=== PATIENT | male | born 1950 | race Caucasian/White ===

== ENCOUNTER 2017-01-16 06:04 | Day surgery (SDC) | payer OTHER ==
[2017-01-15 10:47] VITALS: BMI 25.1
[2017-01-16] MEDS ORDERED: methylPREDNISolone ACET (DEPO) 40 MG/1 ML VIAL ONE (07:07)
[2017-01-16] MEDS ORDERED: THROMBIN (BOVINE) 5,000 UNIT VIAL TP ONE ×2 (07:07→09:14)
[2017-01-16] MEDS ORDERED: GUM MASTIC/STORAX/MSAL/ALCOHOL 1 DRP DROPSBTL MC ONE (07:07)
[2017-01-16] MEDS ORDERED: BUPIVACAINE HCL/PF 2.5 MG/ML - 30 ML VIAL IJ ONE (07:07)
[2017-01-16] MEDS ORDERED: LIDOCAINE 1%/EPI 1:100000 (20 ML MULTI DOSE VIAL) ONE (07:07)
[2017-01-16] MEDS ORDERED: CEFAZOLIN 2 GM in DEXTROSE 5%-WATER - 100 ML IVPB ONE (07:10)
[2017-01-16] MEDS ORDERED: oxyCODONE HCL 10 MG SUSTAINED ACTING TABLET PO STA (07:10)
--- NOTE | 2017-01-16 07:51 | HP ---
History & Physical Update - History History: No Change - Physical Physical: No Change - Assessment Assessment: No Change - Plan Plan: No Change (This is my first time meeting the patient. I have informed him that I will be assisting Dr. Lutz. He is fine with it.)
[2017-01-16] MEDS ORDERED: MIDAZOLAM HCL 2 MG/2 ML SINGLE DOSE VIAL ONE ×2 (08:15→08:51)
[2017-01-16] MEDS ORDERED: BUPIVACAINE HCL/PF 0.5% (5MG/ML) 10 ML VIAL ONE (08:19)
[2017-01-16] MEDS ORDERED: ONDANSETRON 4 MG/2 ML VIAL ONE (08:35)
[2017-01-16] MEDS ORDERED: LIDOCAINE 1%/EPI 1:100000 (50 ML MULTI DOSE VIAL) INF ONE (08:45)
[2017-01-16] MEDS ORDERED: methylPREDNISolone ACET (DEPO) 40 MG/1 ML VIAL IM ONE (10:02)
[2017-01-16] MEDS ORDERED: BUPIVACAINE HCL/PF 0.25% (2.5MG/ML) 10 ML VIAL IJ ONE (10:03)
[2017-01-16] MEDS ORDERED: ACETAMINOPHEN INJECTION 100 ML IVPB ONE (10:31)
[2017-01-16] MEDS ORDERED: ACETAMINOPHEN 1000 MG/100 ML VIAL (NON FORMULARY) IVPB ONE ×2 (10:31→10:35)
--- NOTE | 2017-01-16 10:31 | OP ---
Operative Note - Note: Operative Date: 01/16/17 Pre-Operative Diagnosis: Spinal stenosis, lumbar radiculopathy Operation: Bilateral laminectomy L3-L4, L4-L5 Post-Operative Diagnosis: Same as Pre-op Surgeon: Russ Lutz Nursing Service Administrator: Carl Garza Anesthesiologist/RADIO NEWS ANCHOR: María Meija Anesthesia: Spinal Estimated Blood Loss (mls): 20 Fluid Volume Replaced (mls): 1,100 Operative Report Dictated: Yes
--- NOTE | 2017-01-16 10:33 | SURG ---
Surgery 21 Dealer Note 21 Dealer: Carl Garza PA-C Date of Service: 01/16/17 Diagnosis: Spinal stenosis, Lumbar radiculopathy Procedure: CPT CODE: 40976 Bilateral laminectomy L3-L4, L4-L5 I was present for the entirety of the operative procedure. For further detail, please refer to operative report. Visit type - Case Type Case Type: Scheduled Admission - New patient This patient is new to me today: Yes Date on this admission: 01/16/17
[2017-01-16] MEDS ORDERED: traMADol HCL 50 MG TABLET ONE (10:59)
[2017-01-16] MEDS ORDERED: traMADol HCL 50 MG TABLET PO ONE ×2 (11:04)
[2017-01-16 11:29] VITALS: TEMP 98.3
[2017-01-16] MEDS ORDERED: oxyCODONE HCL 5 MG TABLET PO PRN (11:34)
[2017-01-16] MEDS ORDERED: ACETAMINOPHEN 325 MG TABLET (FP) PO PRN (11:34)
--- NOTE | 2017-01-16 11:55 | OP ---
DATE OF OPERATION: 01/16/2017 PREOPERATIVE DIAGNOSIS: Spinal stenosis L3-L4, L4-L5. POSTOPERATIVE DIAGNOSIS: Spinal stenosis L3-L4, L4-L5. PROCEDURE PERFORMED: Laminectomy at L3-L4, L4-L5. SURGEON: Russ Lutz MD POND WORKER: AYSHA Strickland ESTIMATED BLOOD LOSS: 50 mL. IV FLUID: Per Anesthesia. ANESTHESIA: Spinal. COMPLICATIONS: There were none. DISPOSITION: Patient brought to the PACU in stable condition. INDICATIONS FOR SURGERY: The patient is a 66-year-old gentleman who has been suffering from pain from his back down his legs. X-rays and MRI were completed which noted that he had spinal stenosis from L3 to L5. He had gone through an exhaustive course of treatment for this which included medications, physical therapy, as well as injections. Unfortunately, his pain continued to persist despite all this. At this point, risks, benefits, and alternatives were discussed, and the patient consented to surgery. OPERATIVE NOTE: Patient was brought to the operating room by the Anesthesia staff. After appropriate patient identification was performed, spinal anesthesia was given. The patient was able to position himself prone onto the Felix frame with all areas of bony prominences well padded. At this time, 2 needles were placed into his back to rachel off the L3 and L5 segments. An x-ray was taken to confirm this was correct. The needle was removed, and 10 mL of lidocaine with epinephrine was injected into his back at this time. His back was prepped and draped in a sterile manner. At this point, a time-out was completed. An incision was made from the top of L3 down to the bottom of L5. Dissection was carried down to the fascia. The fascia was then split open at this time and appropriate retractors were then placed in. A spinal needle was placed onto the L4 level to rachel the L4-L5 level, and x-ray take to confirm this was correct. The needle was removed, and the microscope was brought in. At this point, the interspinous ligament at L3-L4 and L4-L5 was removed. The spinous process at L4 was removed. A mina was used to remove the lamina at L4. A complete decompression was performed by removing the flavum. By the end of the procedure, the L4 and L5 nerve roots appeared to be well decompressed. All bleeding was well controlled at this time. Steroids were placed over the nerve root. Floseal was placed over that. The fascia was closed with a No. 1 Vicryl suture. The subcutaneous tissues were closed with 2-0 Vicryl suture. Skin was closed with 3-0 Monocryl suture. Dermabond was applied. Steri-Strips were applied, and sterile dressings applied. Patient was placed supine on the OR bed and brought to the PACU in stable condition. Abraham MUÑOZ/[id number]
[2017-01-16 12:23] VITALS: BP 143/92; PULSE 58
== END 2017-01-16 12:20 | disposition home or self-care (01) ==
LOC: FASU 06:04
PROVIDERS: ATTEND Orthopaedic Surgery Orthopaedic Surgery of the Spine
PROC: 01NB0ZZ Release Lumbar Nerve, Open Approach (ICD-10-PCS; principal; 2017-01-16 08:15)
DX: M48.06 Spinal stenosis, lumbar region (principal)
CPT/HCPCS: 72100-TC; 76000-TC; 94760